=== PATIENT | female | born 1965 | race Caucasian/White ===

== ENCOUNTER 2021-07-16 08:28 | Emergency (ER) | payer SELFPAY ==
[~2021-07-16] VITALS: Ht 149.9 cm; Wt 95.3 kg
== END 2021-07-16 10:18 | disposition home or self-care (01) ==
LOC: ER 08:30
DX: R05.9 Cough, unspecified (principal); J06.9 Acute upper respiratory infection, unspecified; I10 Essential (primary) hypertension; Z20.822 Contact with and (suspected) exposure to COVID-19
CPT/HCPCS: 71046; 99283; U0002